=== PATIENT | male | born 1970 | race Caucasian/White ===

== ENCOUNTER → 2018-07-01 | Outpatient (CLI) | payer OTHER ==
[~2018-07-01] MED LIST: ATOR20TA65 PO; FLU45SYR17 IM; FLU60SYR30 IM ONLY; FLUT16SP19 NS; META-1 PO; SIMV-54 PO; TRAM-420 PO; iron PO
[2018-07-01 08:59] LABS: PLATELET COUNT, AUTOMATED 172 K/uL (150-450)
[2018-07-01 10:24] LABS: LDL CHOLESTEROL 100 mg/dl
== END ==
LOC: LAB 08:49
PROVIDERS: ATTEND Nurse Practitioner Primary Care
DX: E78.5 Hyperlipidemia, unspecified (principal); Z00.00 Encounter for general adult medical examination without abnormal findings
CPT/HCPCS: 36415; 82040; 82247; 82310; 82374; 82435; 82465; 82565; 82947; 83718; 84075; 84132; 84155; 84295; 84450; 84460; 84478; 84520; 85025

== ENCOUNTER → 2018-10-26 | Outpatient (CLI) | payer OTHER ==
[~2018-10-26] MED LIST changes: +FLU60SYR36 IM
== END ==
LOC: LAB 11:09
PROVIDERS: ATTEND Nurse Practitioner Primary Care
DX: J02.9 Acute pharyngitis, unspecified (principal)
CPT/HCPCS: 87653

== ENCOUNTER → 2018-11-12 | Outpatient (CLI) | payer OTHER ==
[~2018-11-12] MED LIST changes: +OXYC-373 PO; +TAMS0.4C70 PO
[2018-11-12 10:07] LABS: PLATELET COUNT, AUTOMATED 191 K/uL (150-450)
--- NOTE | 2018-11-12 13:50 | RADIOLOGY IMAGING REPORT ---
FACILITY: [facility] [place] PATIENT NAME: Vin Stringer : 1970 MR: [id number] V: [id number] EXAM DATE: ORDERING PHYSICIAN: ELSIE SETH TECHNOLOGIST: Location: [facility] Patient: Vin Stringer : 1970 Visit/Account:[id number] Date of Sevice: 11/12/2018 COMPUTED TOMOGRAPHY OF THE Abdomen and Pelvis without CONTRAST INDICATION: Left renal colic. TECHNIQUE: Contiguous axial 3.[address] images were obtained through the abdomen and pelvis without co ntrast. Coronal and sagittal reformatted images were submitted. COMPARISON: CT chest abdomen and pelvis June 07, 2017. FINDINGS: Lung bases: Clear. Liver and hepatic vasculature: Limited parenchymal evaluation without contrast. No apparent lesion. No ascites. Gallbladder and bile ducts: Normal Spleen: Normal Pancreas: Normal Adrenals: Normal Kidneys, ureters and bladder: Mild left hydronephrosis and hydroureter with a 5 mm calculus in the d ownstream left ureter at or near the left UVJ. The bladder is incompletely filled. The right kidney appears normal. Retroperitoneum and aorta: Normal caliber aorta. No adenopathy. GI tract, mesentery and peritoneum: Normal appendix. No distention. No findings of diverticulitis. Prostate: Unremarkable. Bones and soft tissues: No acute osseous abnormality and no significant degenerative findings. IMPRESSION: 5 mm calculus in the downstream left ureter at or near the left UVJ results in mild left hydroureter and hydronephrosis. One of the following dose optimization techniques was utilized in the performance of this exam: Autom ated exposure control; adjustment of the mA and/or kV according to the patient's size; or use of an i terative reconstruction technique. Specific details can be referenced in the facility's radiology C T exam operational policy. Report Dictated By: Ezekiel Disla MD at 11/12/2018 1:38 PM Report E-Signed By: Ezekiel Disla MD at 11/12/2018 1:43 PM WSN:[email or web address]
== END ==
LOC: LAB 09:11
PROVIDERS: ATTEND Emergency Medicine
DX: N23 Unspecified renal colic (principal); R10.9 Unspecified abdominal pain
CPT/HCPCS: 36415; 74176; 81001; 82310; 82374; 82435; 82565; 82947; 84132; 84295; 84520; 85025

== ENCOUNTER → 2018-11-26 | Outpatient (CLI) | payer OTHER ==
--- NOTE | 2018-11-26 15:15 | RADIOLOGY IMAGING REPORT ---
FACILITY: [facility] - [place], [place] PATIENT NAME: Vin Stringer : 1970 MR: [id number] V: [id number] EXAM DATE: ORDERING PHYSICIAN: ELSIE SETH TECHNOLOGIST: Location: [facility] Patient: Vin Stringer : 1970 Visit/Account:[id number] Date of Sevice: 11/26/2018 KIDNEYS EXAMINATION: Renal ultrasound. History: Left hydronephrosis and kidney stone follow-up COMPARISON STUDIES: CT abdomen pelvis November 12, 2018 FINDINGS: Kidneys: Right kidney- 11.5 x 4.3 x 3.8 cm Left kidney- 10.4 x 5.4 x 4.9 cm Uniform and symmetric blood flow in each kidney by Doppler ultrasound. Hydronephrosis: none Resistive index on the right 0.63 and on the left 0.58 Bladder: Prevoid volume 97 mL. Post void residual 5.7 mL. Bilateral ureteral jets are identified. Abdominal aorta and IVC: Aorta and IVC are patent by Doppler ultrasound. IMPRESSION: No evidence of hydronephrosis or nephrolithiasis Report Dictated By: Liya Heath MD at 11/26/2018 3:08 PM Report E-Signed By: Liya Heath MD at 11/26/2018 3:10 PM WSN:[email or web address]
== END ==
LOC: US 01:05
PROVIDERS: ATTEND Emergency Medicine
DX: N20.0 Calculus of kidney (principal)
CPT/HCPCS: 76705

== ENCOUNTER → 2019-03-03 | Outpatient (CLI) | payer OTHER ==
[~2019-03-03] MED LIST changes: +DULO30CA6 PO
[2019-03-03 10:13] LABS: PLATELET COUNT, AUTOMATED 151 K/uL (150-450)
== END ==
LOC: LAB 09:48
PROVIDERS: ATTEND Nurse Practitioner Primary Care
DX: R53.83 Other fatigue (principal); R25.1 Tremor, unspecified
CPT/HCPCS: 36415; 82040; 82247; 82306; 82310; 82374; 82390; 82435; 82565; 82607; 82728; 82947; 83540; 83550; 84075; 84132; 84155; 84295; 84402; 84443; 84450; 84460; 84520; 85025

== ENCOUNTER → 2019-06-07 | Outpatient (CLI) | payer OTHER ==
[~2019-06-07] MED LIST changes: +TAMS0.4C25 PO
== END ==
LOC: LAB 10:10
PROVIDERS: ATTEND Emergency Medicine
DX: R30.0 Dysuria (principal)
CPT/HCPCS: 81001; 82365; 88300